=== PATIENT | female | born 1960 | race Caucasian/White ===

== ENCOUNTER 2017-12-31 23:23 | Emergency (ER) | payer OTHER ==
[~2017-12-31] VITALS: Ht 160 cm; Wt 68.0 kg
[2017-12-31] MEDS ORDERED: TUMS DUAL ACTI1 EACH PO (23:29)
[2018-01-01] MEDS ORDERED: OMEPRAZOLE20 MG PO (02:23)
--- NOTE | 2018-01-01 20:14 | EKG ---
[facility] [address] [facility] [place], [place] [address] Signed Normal sinus rhythm Possible Left atrial enlargement Nonspecific ST abnormality Abnormal ECG No previous ECGs available Confirmed by ELEUTERIO VITALE DO ([id number]) on 01/01/2018 8:14:17 PM Electronically Signed By: ELEUTERIO VITALE DO 01/01/18 2014 PATIENT NAME: ROBBI ALEXIS Electrocardiogram DATE OF : 56 PHYSICIAN: ELEUTERIO VITALE DO REPORT #: [id number] REPORT IS CONFIDENTIAL AND NOT TO BE RELEASED WITHOUT AUTHORIZATION
== END 2018-01-01 02:41 | disposition home or self-care (01) ==
LOC: ED 23:23
DX: R07.2 Precordial pain (principal)
CPT/HCPCS: 71045; 80053; 84484; 85025; 93005; 93010; 99285